=== PATIENT | male | born 2000 | race Caucasian/White ===

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

== ENCOUNTER 2021-01-14 15:27 | Outpatient (CLI) | payer OTHER | END 2021-01-14 20:41 | disposition home or self-care (01) | LOC: SRD 15:27 | PROVIDERS: ATTEND Internal Medicine | DX: J45.909 Unspecified asthma, uncomplicated (principal) | CPT/HCPCS: 71046-TC ==

== ENCOUNTER 2021-01-15 07:30 | Outpatient (CLI) | payer OTHER ==
[2021-01-15 09:11] LABS: BASOPHILS % (AUTO) 0.6 % (0.0-2.0); EOSINOPHILS % (AUTO) 0.9 % (0.0-4.0); HEMOGLOBIN 16.9 g/dL (14.0-18.0); LYMPHOCYTES # (AUTO) 1.9 K/uL (1.0-5.5); LYMPHOCYTES % (AUTO) 34.9 % (20.5-51.5); MEAN CORPUSCULAR HEMOGLOBIN 31 pg (27-31); MEAN CORPUSCULAR HGB CONC 35 % (32-36); MEAN CORPUSCULAR VOLUME 87 fL (79.0-98.0); MONOCYTES # (AUTO) 0.4 K/uL (0.0-1.0); MONOCYTES % (AUTO) 7.6 % (1.7-9.3); PLATELET COUNT (AUTO) 192 K/uL (130-430); RED BLOOD CELL COUNT(AUTO) 5.51 MIL/uL (4.2-6.2); RED CELL DISTRIBUTION WIDTH 12.3 % (9.0-15.0); WHITE BLOOD COUNT (AUTO) 5.4 K/uL (4.5-11.0)
[2021-01-15 09:35] LABS: ALBUMIN 4.5 g/dL (3.4-4.8); CALCIUM 9.7 mg/dL (8.4-11.0); CREATININE 0.9 mg/dL (0.55-1.30); POTASSIUM 3.8 mmol/L (3.5-5.1); THYROID STIMULATING HORMONE 2.64 uIu/mL (0.36-3.74)
== END 2021-01-15 14:00 | disposition home or self-care (01) ==
LOC: SCA 07:30
PROVIDERS: ATTEND Internal Medicine
DX: R73.9 Hyperglycemia, unspecified (principal); J45.20 Mild intermittent asthma, uncomplicated; R00.0 Tachycardia, unspecified; E55.9 Vitamin D deficiency, unspecified; E78.5 Hyperlipidemia, unspecified
CPT/HCPCS: 36415; 80053; 80061; 82306; 82607; 83036; 84443; 85025; 93005; 93306

== ENCOUNTER 2021-06-24 09:40 | Outpatient (CLI) | payer OTHER ==
[2021-06-24 10:21] LABS: BASOPHILS # (AUTO) 0.1 K/uL (0.0-0.2); BASOPHILS % (AUTO) 0.9 % (0.0-2.0); EOSINOPHILS # (AUTO) 0.2 K/uL (0.0-0.4); EOSINOPHILS % (AUTO) 3.3 % (0.0-4.0); HEMATOCRIT 49.1 % (36-54); HEMOGLOBIN 16.7 g/dL (14.0-18.0); LYMPHOCYTES # (AUTO) 2.3 K/uL (1.0-5.5); LYMPHOCYTES % (AUTO) 38.4 % (20.5-51.5); MEAN CORPUSCULAR HEMOGLOBIN 30 pg (27-31); MEAN CORPUSCULAR HGB CONC 34 % (32-36); MEAN CORPUSCULAR VOLUME 87 fL (79.0-98.0); MONOCYTES # (AUTO) 0.5 K/uL (0.0-1.0); MONOCYTES % (AUTO) 8.7 % (1.7-9.3); NEUTROPHILS # (AUTO) 2.9 K/uL (1.8-7.7); NEUTROPHILS % (AUTO) 48.7 % (40.0-70.0); PLATELET COUNT (AUTO) 210 K/uL (130-430); RED BLOOD CELL COUNT(AUTO) 5.66 MIL/uL (4.2-6.2)
[2021-06-24 10:34] LABS: ALBUMIN 4.5 g/dL (3.4-4.8); CALCIUM 8.4 mg/dL (8.4-11.0); CREATININE 0.86 mg/dL (0.55-1.30); POTASSIUM 4.1 mmol/L (3.5-5.1)
== END 2021-06-24 21:08 | disposition home or self-care (01) ==
LOC: SLB 09:40
PROVIDERS: ATTEND Internal Medicine
DX: J45.20 Mild intermittent asthma, uncomplicated (principal); R00.0 Tachycardia, unspecified; F41.0 Panic disorder [episodic paroxysmal anxiety]
CPT/HCPCS: 36415; 80053; 82306; 82607; 85025

== ENCOUNTER 2023-01-01 18:05 | Inpatient (IN) | payer BC, OTHER ==
[~2023-01-01] VITALS: Ht 170.2 cm; Wt 73.2 kg
[2023-01-01 19:48] VITALS: BP_SYST 151; PULSE 101; RESP 18; TEMP 99; O2SAT 98
[2023-01-01 20:50] LABS: BILIRUBIN,URINE NEGATIVE (NEGATIVE); CLARITY/URINE Clear (CLEAR); COLOR,URINE YELLOW (YELLOW); GLUCOSE,URINE NEGATIVE (NEGATIVE); NITRITE, URINE NEGATIVE (NEGATIVE); PROTEIN URINE NEGATIVE (NEGATIVE); UROBILINOGEN,URINE 0.2 (0.2-1.0)
[2023-01-01 20:55] LABS: KETONES,URINE NEGATIVE (NEGATIVE)
[2023-01-01 20:56] LABS: BLOOD, URINE TRACE (NEGATIVE); LEUKOCYTE ESTERASE ,URINE NEGATIVE (NEGATIVE)
[2023-01-01 23:07] LABS: BASOPHILS % (AUTO) 0.4 % (0.0-2.0); EOSINOPHILS % (AUTO) 0.6 % (0.0-4.0); HEMATOCRIT 51.5 % (36-54); HEMOGLOBIN 17.5 g/dL (14.0-18.0); LYMPHOCYTES # (AUTO) 2.6 K/uL (1.0-5.5); MEAN CORPUSCULAR HEMOGLOBIN 30 pg (27-31); MEAN CORPUSCULAR HGB CONC 34 % (32-36); MEAN CORPUSCULAR VOLUME 88 fL (79.0-98.0); MONOCYTES # (AUTO) 0.7 K/uL (0.0-1.0); MONOCYTES % (AUTO) 7.9 % (1.7-9.3); NEUTROPHILS # (AUTO) 5.5 K/uL (1.8-7.7); NEUTROPHILS % (AUTO) 62.1 % (40.0-70.0); PLATELET COUNT (AUTO) 237 K/uL (130-430); RED BLOOD CELL COUNT(AUTO) 5.83 MIL/uL (4.2-6.2); RED CELL DISTRIBUTION WIDTH 12.7 % (9.0-15.0); WHITE BLOOD COUNT (AUTO) 8.8 K/uL (4.8-10.8)
[2023-01-01 23:14] LABS: CALCIUM 9.3 mg/dL (8.4-11.0); CREATININE 0.76 mg/dL (0.55-1.30); POTASSIUM 4.1 mmol/L (3.5-5.1)
[2023-01-01 23:28] LABS: ALBUMIN 4.5 g/dL (3.4-4.8); TOTAL PROTEIN, SERUM 7.8 g/dL (6.4-8.3)
[2023-01-02] VITALS (8 sets, daily range): BP systolic 129–159; PULSE 83–95; RESP 17–18; TEMP 96.6–100; O2SAT 98–100
[2023-01-02] MEDS ORDERED: NACL 0.9% 1,000 ML IV ONE ×2 (00:45)
[2023-01-02 00:54] LABS: CREATINE KINASE MB 2.5 ng/mL (0-3.6)
[2023-01-02 01:41] LABS: BARBITURATE, URINE NEGATIVE (NEG <=200); BENZODIAZEPINE, URINE NEGATIVE (NEG <=150); CANNABINOID, URINE NEGATIVE (NEG <=50); COCAINE, URINE NEGATIVE (NEG <=150); METHAMPHETAMINES SCREEN,URINE NEGATIVE (NEG <=500); OPIATE, URINE NEGATIVE (NEG <=100); PHENCYCLIDINE SCREEN,URINE NEGATIVE (NEG <=25); UR TRICYCLIC ANTIDEPRESSANTS NEGATIVE (NEG <=300); URINE AMPHETAMINE NEGATIVE (NEG <=500); URINE METHADONE NEGATIVE (NEG <=200); URINE OXYCODONE SCREEN NEGATIVE (NEG <=100); URINE PROPOXYPHENE SCREEN NEGATIVE (NEG <=300)
[2023-01-02] MEDS: D5NS 1,000 ML IV SCH ×3 (04:41→16:54)
[2023-01-02 13:05] LABS: CREATINE KINASE MB 1.7 ng/mL (0-3.6)
[2023-01-03 00:44] VITALS: BP_SYST 151; PULSE 99; RESP 20; TEMP 97.9; O2SAT 99
[2023-01-03] MEDS: D5NS 1,000 ML IV SCH ×2 (02:10→09:15)
[2023-01-03 05:02] LABS: BASOPHILS % (AUTO) 0.4 % (0.0-2.0); EOSINOPHILS # (AUTO) 0.1 K/uL (0.0-0.4); EOSINOPHILS % (AUTO) 1.1 % (0.0-4.0); HEMATOCRIT 47.4 % (36-54); HEMOGLOBIN 16.2 g/dL (14.0-18.0); LYMPHOCYTES # (AUTO) 2.3 K/uL (1.0-5.5); LYMPHOCYTES % (AUTO) 29.7 % (20.5-51.5); MEAN CORPUSCULAR HEMOGLOBIN 30 pg (27-31); MEAN CORPUSCULAR HGB CONC 34 % (32-36); MEAN CORPUSCULAR VOLUME 88 fL (79.0-98.0); MONOCYTES # (AUTO) 0.5 K/uL (0.0-1.0); MONOCYTES % (AUTO) 6.7 % (1.7-9.3); NEUTROPHILS # (AUTO) 4.9 K/uL (1.8-7.7); NEUTROPHILS % (AUTO) 62.1 % (40.0-70.0); PLATELET COUNT (AUTO) 216 K/uL (130-430); RED BLOOD CELL COUNT(AUTO) 5.39 MIL/uL (4.2-6.2); RED CELL DISTRIBUTION WIDTH 12.9 % (9.0-15.0); WHITE BLOOD COUNT (AUTO) 7.9 K/uL (4.8-10.8)
[2023-01-03 05:42] LABS: CREATININE 0.76 mg/dL (0.55-1.30); POTASSIUM 4.3 mmol/L (3.5-5.1)
[2023-01-03 06:36] LABS: CREATINE KINASE MB 0.9 ng/mL (0-3.6)
[2023-01-03 08:00] VITALS: BP_SYST 141; PULSE 96; RESP 16; TEMP 98.9; O2SAT 100
[2023-01-03 12:00] VITALS: BP_SYST 145; PULSE 97; RESP 17; TEMP 98.1; O2SAT 98
[2023-01-03] MEDS: KCL 20 mEq in 0.45% NS 1000 mL 1,000 ML IV SCH ×2 (13:45→22:03)
[2023-01-03 17:23] VITALS: BP_SYST 142; PULSE 94; RESP 16; TEMP 98.7; O2SAT 99
[2023-01-03 20:00] VITALS: BP_SYST 144; PULSE 110; RESP 18; TEMP 97.3; O2SAT 100
[2023-01-04] VITALS: BP_SYST 140; PULSE 89; RESP 18; TEMP 97.9; O2SAT 99
[2023-01-04] MEDS: KCL 20 mEq in 0.45% NS 1000 mL 1,000 ML IV SCH (05:37)
[2023-01-04 05:43] LABS: CALCIUM 8.8 mg/dL (8.4-11.0); CREATININE 0.69 mg/dL (0.55-1.30); POTASSIUM 4.3 mmol/L (3.5-5.1)
[2023-01-04 06:59] LABS: CKMB RELATIVE INDEX 0.1 (0.0-2.9); CREATINE KINASE MB 1.9 ng/mL (0-3.6)
[2023-01-04 08:00] VITALS: BP_SYST 132; PULSE 96; RESP 13; TEMP 98.9; O2SAT 100
[2023-01-04 10:56] VITALS: BP_SYST 132; PULSE 96; RESP 16; TEMP 98.9; O2SAT 100
[2023-01-04 12:00] VITALS: BP_SYST 129; PULSE 86; RESP 18; TEMP 98.9; O2SAT 100
== END 2023-01-04 12:55 | disposition home or self-care (01) | DRG 558 ==
LOC: SED 18:05 → SMU 01-02 01:12
PROVIDERS: ADMIT Specialist; ATTEND Specialist
DX: M62.82 Rhabdomyolysis (principal); D64.9 Anemia, unspecified; M54.9 Dorsalgia, unspecified
CPT/HCPCS: 36415; 76376; 80048; 80053; 80307; 81003; 82550; 82553; 83874; 85025; 99285; J3480; J7042